=== PATIENT | female | born 2000 ===

== ENCOUNTER 2019-05-21 20:25 | Emergency (ER) | payer BC ==
[2019-05-21] MEDS ORDERED: NA CHLORIDE 0.9% 1,000 ML ONE (21:00)
[2019-05-21 21:19] LABS: Basophils % 0.8 % (0-1.3); Lymphocytes % 28.5 % (15.3-44.8); MPV 9.8 fL (7.6-11.3); RBC Red Blood Cell Count 4.34 M/uL (3.86-4.86)
[2019-05-21 21:41] LABS: ALT/SGPT 45 U/L (12-78); AST/SGOT 25 U/L (15-37); Albumin 4.6 g/dL (3.4-5.0); Alkaline Phosphatase 50 U/L (45-117); BUN Blood Urea Nitrogen 14 mg/dL (7-18); Bicarbonate 24 mmol/L (21-32); Bilirubin Direct 0.1 mg/dL (0-0.2); Bilirubin Total 0.6 mg/dL (0.2-1.0); Glucose Level 90 mg/dL (74-106); Protein, Total 9.2 g/dL (6.4-8.2); Protime INR 1.05; Sodium Level 139 mmol/L (136-145)
[2019-05-22 01:01] LABS: Urine Blood TRACE (NEG); Urine Glucose NEGATIVE (NEG); Urine Protein NEGATIVE (NEG); Urine Specific Gravity 1.025 (1.005-1.030); Urine pH 5.5 (5.0-7.0)
[2019-05-22 01:06] LABS: Barbiturates NEGATIVE (NEGATIVE); Benzodiazepines POSITIVE (NEGATIVE); Cocaine NEGATIVE (NEGATIVE); METHAMPHETAM NEGATIVE (NEGATIVE); Methadone NEGATIVE (NEGATIVE); Opiates NEGATIVE (NEGATIVE); Phencyclidine NEGATIVE (NEGATIVE); THC Cannibis NEGATIVE (NEGATIVE)
[2019-05-22 01:55] LABS: Urine Bacteria LOADED /HPF (<20); Urine Culture Reflex Order REFLEXED; Urine RBC <5 /HPF (NONE SEEN)
--- NOTE | 2019-05-22 02:26 | ER ---
Nurse's Notes [facility] Name: Anisa Crawford Age: 19 yrs Sex: Female : 2000 Arrival Date: 05/21/2019 Time: 20:26 Bed 7 Private MD: Diagnosis: Suicide attempt;Suicidal ideations Presentation: 05/21 20:40 Presenting complaint: Mother states: pt took Xanax 0.5 mg x 13 at approx 1900 tonight bb pt states she was trying to hurt herself and has had daily thoughts of suicide for the last 3 years. Transition of care: patient was not received from another setting of care. Onset of symptoms was May 21, 2019. Risk Assessment: Do you want to hurt yourself or someone else? Patient reports desire/thoughts of hurting themselves or someone else. Provider notified. Initial Sepsis Screen: Does the patient meet any 2 criteria? No. Patient's initial sepsis screen is negative. Does the patient have a suspected source of infection? No. Patient's initial sepsis screen is negative. Care prior to arrival: None. 20:40 Method Of Arrival: Ambulatory bb 20:40 Acuity: KYLIE 2 bb Triage Assessment: 20:46 General: Appears in no apparent distress. Behavior is crying, listless. Pain: Denies bb pain. Neuro: Level of Consciousness is obeys commands, listless, Oriented to person, place, situation. Cardiovascular: Capillary refill < 3 seconds Patient's skin is warm and dry. Rhythm is sinus tachycardia. Respiratory: Respiratory effort is even, unlabored, Respiratory pattern is regular. GI: No signs and/or symptoms were reported involving the gastrointestinal system. Derm: Skin is pink, warm \\T\\ dry. Musculoskeletal: Circulation, motion, and sensation intact. 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 - Social history:: Smoking status: Patient/guardian denies using tobacco, Patient uses alcohol, but reports only rare drinking. Patient/guardian denies using street drugs. - Ebola Screening: : No symptoms or risks identified at this time. Screenin:48 Abuse screen: Denies threats or abuse. Nutritional screening: No deficits noted. bb Tuberculosis screening: No symptoms or risk factors identified. Fall Risk None identified. Assessment: 20:48 Reassessment: No changes from previously documented assessment. see triage assessment. bb 21:00 Reassessment: Patient appears in no apparent distress at this time. Patient states "I lp1 feel numb". Respiratory: Respiratory effort is even, unlabored. Derm: Skin is dry, Skin is normal. 21:00 Reassessment: Mother at bedside. lp1 21:44 Reassessment: pt is A\\T\\Ox 4, resp unlabored, crying speaking to mother states "I just bb want to live a normal life". 22:30 Reassessment: Patient appears in no apparent distress at this time. Patient resting, lp1 eyes closed, respirations unlabored; mother at bedside. 05/22 00:25 Reassessment: Patient is alert, oriented x 3, equal unlabored respirations, skin lp1 warm/dry/pink. Patient up to bsc at this time. 00:45 Reassessment: Patient is alert, oriented x 3, equal unlabored respirations, skin lp1 warm/dry/pink. Patient eating sandwich at this time; mother at bedside. 03:10 Reassessment: report called to Abimael ROMERO at [facility] for room 730 Bed A on the 7th floor Main building. Pt appears to be sleeping, eyes closed, resp unlabored. Parent at bedside, sitter at bedside. 04:35 Reassessment: EMS at bedside for transfer of pt to [facility], pt aroused easily, A\\T\\O bb x 4, resp unlabored, mother at bedside. Psych: 05/21 20:51 Subjective: Patient's mood is sad, Delusions are denied, Having thoughts of suicide. Plan for suicide is overdose on home medications. Objective: Patient is cooperative, Speech is slow, soft. Interventions: Removed personal items and placed in bag. Patient placed in hospital gown. Searched person for dangerous items. Suicide Risk Assessment: Sad Person Scale: Sex of patient: Female: Score 0 points. Age of patient: Score 1 point if patient 15-34. Depression: Score 1 point if signs of depression are present. Previous Attempt: Score 1 point if patient has previously attempted suicide. Substance Abuse: Score 0 point if patient does not abuse alcohol or drugs. Social Support: Score 0 if social support is present/available. Organized Plan: Score 1 point if patient had a plan in place. Chronic Sickness: Score 1 point if patient has illness, chronic, debilitating, or severe. TOTAL POINTS: If total points are 3-4, proposed clinical action is close follow-up/consider hospitalization. 21:00 Safety Checks: Personal items have been removed. Door is open. Visitors are present. lp1 Mother at bedside. 21:00 Pt denies substance abuse. lp1 21:45 Pt denies substance abuse. bb Overdose: 20:50 Patient took Xanax 0.5 mg x 13. Overdose occurred 1-2 hours ago. bb Vital Signs: 20:46 BP 126 / 76; Pulse 102; Resp 16 S; Temp 97.6(O); Pulse Ox 96% on R/A; Weight 99.79 kg bb (R); Height 5 ft. 1 in. (154.94 cm) (R); Pain 0/10; 21:00 BP 117 / 79; Pulse 100; Resp 12; Pulse Ox 98% on R/A; lp1 21:24 BP 107 / 62; Pulse 99; Resp 18; Pulse Ox 96% on R/A; oe 21:45 BP 108 / 77; Pulse 97; Resp 16; Pulse Ox 95% on R/A; lp1 22:15 BP 100 / 72; Pulse 81; Resp 13; Pulse Ox 97% on R/A; lp1 23:15 BP 106 / 74; Pulse 72; Resp 12; Pulse Ox 95% on R/A; oe 05/22 00:30 BP 106 / 79; Pulse 78; Resp 12; Pulse Ox 96% on R/A; lp1 01:30 BP 120 / 75; Pulse 100; Resp 17; Pulse Ox 95% on R/A; oe 03:01 BP 104 / 49; Pulse 89; Resp 19; Pulse Ox 97% on R/A; oe 04:07 BP 103 / 85; Pulse 86; Resp 15; Pulse Ox 98% on R/A; oe 05/21 20:46 Body Mass Index 41.57 (99.79 kg, 154.94 cm) bb ED Course: 05/21 20:26 Patient arrived in ED. cl3 20:34 Ankit Daniels MD is Attending Physician. gs 20:40 EKG done, by process control tech. reviewed by Ankit Daniels MD. oe 20:41 Triage completed. bb 20:45 Safety checks: Items removed: yes. Door open/sign placed on door: yes. Family/friend oe present: yes. Sitter present: Yes. 20:46 Arm band placed on Patient placed in an exam room, on a stretcher, on cardiac catheterization technologist, bb on pulse oximetry. Family accompanied patient. 20:47 Kirstie Sherwood, RN is Primary Nurse. lp1 20:48 Patient has correct armband on for positive identification. Placed in gown. Bed in low lp1 position. Call light in reach. secured entrance monitor on. Pulse ox on. NIBP on. 21:00 Safety checks: Items removed: yes. Door open/sign placed on door: yes. Family/friend oe present: yes. Sitter present: Yes. 21:00 Side rails up X2. oe 21:04 Inserted saline lock: 22 gauge in right antecubital area, using aseptic technique. oe Blood collected. 21:15 Safety checks: Items removed: yes. Door open/sign placed on door: yes. Family/friend oe present: yes. Sitter present: Yes. 21:30 Safety checks: Items removed: yes. Door open/sign placed on door: yes. Family/friend oe present: yes. Sitter present: Yes. 21:45 Safety checks: Items removed: yes. Door open/sign placed on door: yes. Family/friend oe present: yes. Sitter present: Yes. 22:00 Safety checks: Items removed: yes. Door open/sign placed on door: yes. Family/friend oe present: yes. Sitter present: Yes. 22:15 Safety checks: Items removed: yes. Door open/sign placed on door: yes. Family/friend oe present: yes. Sitter present: Yes. 22:30 Safety checks: Items removed: yes. Door open/sign placed on door: yes. Family/friend oe present: yes. Sitter present: Yes. 22:45 Safety checks: Items removed: yes. Door open/sign placed on door: yes. Family/friend oe present: yes. Sitter present: Yes. 23:00 Safety checks: Items removed: yes. Door open/sign placed on door: yes. Family/friend oe present: yes. Sitter present: Yes. 23:15 Safety checks: Items removed: yes. Door open/sign placed on door: yes. Family/friend oe present: no. Sitter present: Yes. 23:30 Safety checks: Items removed: yes. Door open/sign placed on door: yes. Family/friend oe present: no. Sitter present: Yes. 23:45 Safety checks: Items removed: yes. Door open/sign placed on door: yes. Family/friend oe present: yes. Sitter present: Yes. 05/22 00:00 Safety checks: Items removed: yes. Door open/sign placed on door: yes. Family/friend oe present: yes. Sitter present: Yes. 00:15 Safety checks: Items removed: yes. Door open/sign placed on door: yes. Family/friend oe present: yes. Sitter present: Yes. 00:30 Safety checks: Items removed: yes. Door open/sign placed on door: yes. Family/friend oe present: yes. Sitter present: Yes. 00:45 Safety checks: Items removed: yes. Door open/sign placed on door: yes. Family/friend oe present: yes. Sitter present: Yes. 01:00 Safety checks: Items removed: no. Reason for not removing items: Door open/sign placed oe on door: yes. Family/friend present: yes. Sitter present: Yes. 01:15 Safety checks: Items removed: yes. Door open/sign placed on door: yes. Family/friend oe present: yes. Sitter present: Yes. 01:30 Safety checks: Items removed: yes. Door open/sign placed on door: yes. Family/friend oe present: yes. Sitter present: Yes. :45 Safety checks: Items removed: yes. Door open/sign placed on door: yes. Family/friend oe present: yes. Sitter present: Yes. 02:00 Safety checks: Items removed: yes. Door open/sign placed on door: yes. Family/friend oe present: yes. Sitter present: Yes. 02:15 Safety checks: Items removed: yes. Door open/sign placed on door: yes. Family/friend oe present: yes. Sitter present: Yes. 02:30 Safety checks: Items removed: yes. Door open/sign placed on door: yes. Family/friend oe present: yes. Sitter present: Yes. 02:45 Safety checks: Items removed: yes. Door open/sign placed on door: yes. Family/friend oe present: yes. Sitter present: Yes. 03:00 Safety checks: Items removed: yes. Door open/sign placed on door: yes. Family/friend oe present: no. Sitter present: Yes. 03:15 Safety checks: Items removed: yes. Door open/sign placed on door: yes. Family/friend oe present: no. Sitter present: Yes. 03:30 Safety checks: Items removed: yes. Door open/sign placed on door: no. Family/friend oe present: yes. Sitter present: Yes. 03:45 Safety checks: Items removed: yes. Door open/sign placed on door: yes. Family/friend oe present: yes. Sitter present: Yes. 04:00 Safety checks: Items removed: yes. Door open/sign placed on door: yes. Family/friend oe present: yes. Sitter present: Yes. 04:15 Safety checks: Items removed: yes. Door open/sign placed on door: yes. Family/friend oe present: yes. Sitter present: Yes. 04:37 No provider procedures requiring assistance completed. bb Administered Medications: 05/21 21:04 Drug: NS 0.9% 1000 ml Route: IV; Rate: 1 bolus; Site: right antecubital; lp1 23:00 Follow up: IV Status: Completed infusion; IV Intake: 1000ml lp1 Intake: 23:00 IV: 1000ml; Total: 1000ml. lp1 Outcome: 05/22 01:36 ER care complete, transfer ordered by . belén 04:37 Transferred by ground EMS Transfer form completed. bb 04:37 Condition: stable 04:37 Instructed on transfer to [facility] 04:38 Patient left the ED. bb Signatures: Amber Trejo RN RN bb Kirstie Sherwood RN RN lp1 Osbaldo Smalls Gregory, MD MD gs Lewis, Charde cl3 Corrections: (The following items were deleted from the chart) 05/21 21:19 21:12 Safety checks: Items removed: yes. Door open/sign placed on door: yes. oe Family/friend present: yes. Sitter present: Yes. oe 21:51 21:21 Safety checks: Items removed: yes. Door open/sign placed on door: yes. oe Family/friend present: yes. Sitter present: Yes. oe 22:49 22:26 Safety checks: Items removed: yes. Door open/sign placed on door: yes. oe Family/friend present: yes. Sitter present: Yes. oe
--- NOTE | 2019-05-22 02:32 | EDPHYS ---
Physician Documentation [facility] Name: Anisa Crawford Age: 19 yrs Sex: Female : 2000 Arrival Date: 05/21/2019 Time: 20:26 Bed 7 Private MD: ED Physician Ankit Daniels HPI: 05/22 01:28 This 19 yrs old Female presents to ER via Ambulatory with complaints of Overdose. gs 01:31 The patient presents to the emergency department after a known overdose, that was gs intentional. Context: Method: the patient has a confirmed or suspected ingestion, of benzodiazepines. Associated signs and symptoms: Pertinent positives: depression, Pertinent negatives: auditory hallucinations, decreased level of consciousness. Severity of symptoms: At their worst the symptoms were severe in the emergency department the symptoms are unchanged. The patient has experienced similar episodes in the past, a few times. 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 - Social history:: Smoking status: Patient/guardian denies using tobacco, Patient uses alcohol, but reports only rare drinking. Patient/guardian denies using street drugs. - Ebola Screening: : No symptoms or risks identified at this time. ROS: 05/22 01:31 All other systems are negative. gs Exam: 01:31 Head/Face: Normocephalic, atraumatic. Eyes: Pupils equal round and reactive to light, gs extra-ocular motions intact. Lids and lashes normal. Conjunctiva and sclera are non-icteric and not injected. Cornea within normal limits. Periorbital areas with no swelling, redness, or edema. ENT: Nares patent. No nasal discharge, no septal abnormalities noted. Tympanic membranes are normal and external auditory canals are clear. Oropharynx with no redness, swelling, or masses, exudates, or evidence of obstruction, uvula midline. Mucous membranes moist. Neck: Trachea midline, no thyromegaly or masses palpated, and no cervical lymphadenopathy. Supple, full range of motion without nuchal rigidity, or vertebral point tenderness. No Meningismus. Chest/axilla: Normal chest wall appearance and motion. Nontender with no deformity. No lesions are appreciated. Cardiovascular: Regular rate and rhythm with a normal S1 and S2. No gallops, murmurs, or rubs. Normal PMI, no JVD. No pulse deficits. Respiratory: Lungs have equal breath sounds bilaterally, clear to auscultation and percussion. No rales, rhonchi or wheezes noted. No increased work of breathing, no retractions or nasal flaring. Abdomen/GI: Soft, non-tender, with normal bowel sounds. No distension or tympany. No guarding or rebound. No evidence of tenderness throughout. Back: No spinal tenderness. No costovertebral tenderness. Full range of motion. Skin: Warm, dry with normal turgor. Normal color with no rashes, no lesions, and no evidence of cellulitis. MS/ Extremity: Pulses equal, no cyanosis. Neurovascular intact. Full, normal range of motion. Neuro: Awake and alert, GCS 15, oriented to person, place, time, and situation. Cranial nerves II-XII grossly intact. Motor strength 5/5 in all extremities. Sensory grossly intact. Cerebellar exam normal. Normal gait. 01:31 Constitutional: The patient appears alert, awake. 01:31 Psych: Behavior/mood is depressed, Affect is flat, Not oriented to person place, time, Patient having thoughts of suicide. Plan for suicide is PILLS Judgement / Insight is impaired. Delusions/hallucinations are not present. Vital Signs: 05/21 20:46 BP 126 / 76; Pulse 102; Resp 16 S; Temp 97.6(O); Pulse Ox 96% on R/A; Weight 99.79 kg bb (R); Height 5 ft. 1 in. (154.94 cm) (R); Pain 0/10; 21:00 BP 117 / 79; Pulse 100; Resp 12; Pulse Ox 98% on R/A; lp1 21:24 BP 107 / 62; Pulse 99; Resp 18; Pulse Ox 96% on R/A; oe 21:45 BP 108 / 77; Pulse 97; Resp 16; Pulse Ox 95% on R/A; lp1 22:15 BP 100 / 72; Pulse 81; Resp 13; Pulse Ox 97% on R/A; lp1 23:15 BP 106 / 74; Pulse 72; Resp 12; Pulse Ox 95% on R/A; oe 05/22 00:30 BP 106 / 79; Pulse 78; Resp 12; Pulse Ox 96% on R/A; lp1 01:30 BP 120 / 75; Pulse 100; Resp 17; Pulse Ox 95% on R/A; oe 03:01 BP 104 / 49; Pulse 89; Resp 19; Pulse Ox 97% on R/A; oe 04:07 BP 103 / 85; Pulse 86; Resp 15; Pulse Ox 98% on R/A; oe 05/21 20:46 Body Mass Index 41.57 (99.79 kg, 154.94 cm) bb MDM: 05/21 20:41 Patient medically screened. 05/22 01:28 ED course: [place]. 01:31 Differential diagnosis: Ingestion/exposure to [place] polypharmacy. Data reviewed: vital signs, nurses notes, lab test result(s). 05/21 20:42 Order name: Acetaminophen 05/21 20:42 Order name: Basic Metabolic Panel 05/21 20:42 Order name: CBC with Diff 05/21 20:42 Order name: ETOH Level 05/21 20:42 Order name: Hepatic Function 05/21 20:42 Order name: PT-INR 05/21 20:42 Order name: Ptt, Activated 05/21 20:42 Order name: Salicylate 05/21 20:42 Order name: Urine Drug Screen 05/21 21:27 Order name: CBC with Automated Diff; Complete Time: 00:12 EDMS 05/21 21:45 Order name: Basic Metabolic Panel; Complete Time: 00:12 EDMS 05/21 21:45 Order name: Liver (Hepatic) Function; Complete Time: 00:12 EDMS 05/21 21:46 Order name: Acetaminophen Level; Complete Time: 00:12 EDMS 05/21 21:46 Order name: Alcohol Serum/Plasma; Complete Time: 00:12 EDMS 05/21 20:42 Order name: Urine Test (obtain specimen); Complete Time: 00:43 05/21 20:42 Order name: EKG; Complete Time: 20:44 05/21 20:42 Order name: EKG - Nurse/Tech; Complete Time: 20:47 05/21 20:42 Order name: IV Saline Lock; Complete Time: 21:06 05/21 20:42 Order name: Labs collected and sent; Complete Time: 21:14 05/21 21:46 Order name: Protime (+INR); Complete Time: 00:12 EDAK 05/21 21:46 Order name: PTT, Activated Partial Thromb; Complete Time: 00:12 EDAK 05/21 21:49 Order name: Salicylates Level; Complete Time: 00:12 EDMS 05/22 00:32 Order name: Urine Dipstick--Ancillary (enter results) ar5 05/22 00:32 Order name: Urine --Ancillary (enter results) [facility] 05/22 01:05 Order name: Urine --Ancillary; Complete Time: 01:30 EDAK 05/22 01:05 Order name: Urine Dipstick-Ancillary; Complete Time: 01:30 EDAK 05/22 01:10 Order name: Urine Drug Screen; Complete Time: 01:30 EDAK 05/22 01:40 [facility] name: [facility] 05/[facility] 01:57 Order name: Urine Microscopic Only EDAK 05/21 20:42 Order name: Urine Dipstick-Ancillary (obtain specimen); Complete Time: 00:43 Administered Medications: 05/21 21:04 Drug: NS 0.9% 1000 ml Route: IV; Rate: 1 bolus; Site: right antecubital; lp1 23:00 Follow up: IV Status: Completed infusion; IV Intake: 1000ml lp Disposition: 05/22/19 01:36 Transfer ordered to [facility]. Diagnosis are Suicide attempt, Suicidal ideations. - Reason for transfer: Higher level of care. - Accepting physician is LISETH. - Condition is Stable. - Problem is new. - Symptoms are unchanged. Signatures: Dispatcher [facility] Amber Trejo RN RN bb Kirstie Sherwood RN RN 1 Ankit Daniels MD MD Corrections: (The following items were deleted from the chart) 05/22 04:38 01:36 05/22/2019 01:36 Transfer ordered to [facility]. Diagnosis is bb Suicide attempt; Suicidal ideations. Reason for transfer: Higher level of care. Accepting physician is LISETH. Condition is Stable. Problem is new. Symptoms are unchanged. gs
--- NOTE | 2019-05-24 08:14 | EKG ---
Test Date: 2019-05-21 Test Time: 20:38:09 Professional Athletes Coach: FELIX MEASUREMENT RESULTS: Intervals: Rate: 110 NM: 160 QRSD: 90 QT: 332 QTc: 449 Dante: P: 43 NM: 160 QRS: 75 T: 7 INTERPRETIVE STATEMENTS: Sinus tachycardia Nonspecific T wave abnormality Abnormal ECG No previous ECG available for comparison Electronically Signed On 05-24-19 08:08:00 CDT by Chuy Zhang
== END 2019-05-22 04:38 | disposition short-term general hospital (02) ==
LOC: ER 20:25
DX: T42.4X2A Poisoning by benzodiazepines, intentional self-harm, initial encounter (principal); T14.91XA Suicide attempt, initial encounter; Y92.9 Unspecified place or not applicable
CPT/HCPCS: 96361; 93005; 87088; 85025; 87086; 80048; 36415; 80320; 80329 ×2; 81025; 85610; 80076; 80307 ×8; 85730; 87077; 87186; 96360; 99285; J7030; 81003; 81015